=== PATIENT | female | born 1970 | race Caucasian/White ===

== ENCOUNTER 2017-08-30 09:59 | Emergency (ER) | payer BC ==
[~2017-08-30] VITALS: Ht 160 cm; Wt 66.7 kg
[2017-08-30] MEDS ORDERED: FAMOTIDINE 20 MG/2 ML VIAL IV STA (10:35)
[2017-08-30] MEDS ORDERED: ALBUTEROL SULF 0.083% NEB SOLN 3 ML NEB NEB STA (10:35)
[2017-08-30] MEDS ORDERED: DIPHENHYDRAMINE HCL INJ 50 MG/ML VIAL IV ONE (10:45)
[2017-08-30] MEDS ORDERED: METHYLPREDNISOLONE SOD SUCC 125 MG/2ML VIAL IV ONE (10:45)
[2017-08-30] MEDS ORDERED: SODIUM CHLORIDE 0.9% 500ML 500 ML IV ONE (10:45)
[2017-08-30 12:28] VITALS: BP 140/78
== END 2017-08-30 12:17 | disposition home or self-care (01) ==
LOC: FSED 09:59
DX: R21 Rash and other nonspecific skin eruption (principal); T78.3XXA Angioneurotic edema, initial encounter; J98.01 Acute bronchospasm
CPT/HCPCS: 99283; J1200; J2930; J7040